=== PATIENT | female | born 1980 | race Caucasian/White ===

== ENCOUNTER 2019-02-22 07:58 | Emergency (ER) | payer BC ==
[~2019-02-22] VITALS: Ht 157.5 cm; Wt 83.9 kg
[~2019-02-22 07:58] MED LIST: ALBUTEROL INHAL17 GM INH; AUGMENTIN 875875 MG PO; CIPRO500 MG PO; CIPROFLOXACIN500 M1 PO; FLAGYL500 MG PO; HYDROCODONE-AP1 EAC6 PO; IBUPROFEN 800800 M1 PO; MOBIC7.5 MG PO; NOHOMEMEDICATIONS; NORCO 5-325 TA1 EACH PO; NORFLEX100 MG PO; PREDNISONE 20 M20 MG PO; PYRIDIUM200 MG PO; TIROSINT50 MCG PO; ZANTAC 150MG T150 M1 PO; ZOFRAN 4 MG ORAL4 M1 DIS; ZPAK PO
[2019-02-22] MEDS ORDERED: HYDROCODONE-AP1 EAC6 PO (08:21)
[2019-02-22] MEDS ORDERED: FLEXERIL PO (08:21)
[2019-02-22] MEDS ORDERED: PREDNISONE50 MG PO (08:21)
[2019-02-22 08:39] VITALS: BP 145/89
== END 2019-02-22 08:41 | disposition home or self-care (01) ==
LOC: M.ERS 07:58
DX: M54.12 Radiculopathy, cervical region (principal); F17.200 Nicotine dependence, unspecified, uncomplicated; E03.9 Hypothyroidism, unspecified; K50.90 Crohn's disease, unspecified, without complications; Z90.49 Acquired absence of other specified parts of digestive tract; Z90.89 Acquired absence of other organs

== ENCOUNTER 2020-06-10 15:46 | Emergency (ER) | payer BC ==
[~2020-06-10] VITALS: Ht 160 cm; Wt 77.1 kg
[~2020-06-10 15:46] MED LIST changes: +FLEXERIL PO; +PREDNISONE50 MG PO
[2020-06-10 16:08] LABS: ABSOLUTE EOSINOPHILS 0.4 thou/uL (0.0-0.7); ABSOLUTE LYMPHOCYTES 2.3 thou/uL (0.8-5.3); ABSOLUTE MONOCYTES 0.7 thou/uL (0.0-1.2); ABSOLUTE NEUTROPHILS 6.6 thou/uL (1.6-8.1); BASOPHILS 0.5 %; EOSINOPHILS 3.9 %; HEMOGLOBIN 14.9 gm/dL (12.0-15.0); LYMPHOCYTES 22.5 %; MCH 34.1 pg (26.0-34.0); MCHC 34.6 g/dL (28.0-37.0); MCV 98.5 fL (80.0-100.0); MPV 9.1 fl. (7.2-11.1); NUCLEATED RBCS 0 /100WBC; PLATELET COUNT* 301 thou/uL (150-400); POLYS 66.1 %; RBC 4.37 mil/uL (4.20-5.00); RDW-CV 13.4 % (10.5-14.5)
[2020-06-10 16:17] LABS: CALCIUM 8.6 mg/dL (8.5-10.1); CREATININE 0.8 mg/dL (0.6-1.3); POTASSIUM 4.6 mmol/L (3.5-5.1)
[2020-06-10 16:18] LABS: URINE BILIRUBIN NEGATIVE (Negative); URINE BLOOD NEGATIVE (Negative); URINE CLARITY CLEAR; URINE COLOR YELLOW; URINE GLUCOSE-RANDOM NEGATIVE (Negative); URINE KETONES NEGATIVE (Negative); URINE LEUKOCYTES-REFLEX NEGATIVE (Negative); URINE NITRITE-REFLEX NEGATIVE (Negative); URINE PROTEIN NEGATIVE (Negative); URINE SPECIFIC GRAVITY 1.025 (1.005-1.030); URINE UROBILINOGEN 0.2 E.U./dl (0.2-1.0)
[2020-06-10 16:29] LABS: ALBUMIN 3.8 g/dL (3.4-5.0); TOTAL BILIRUBIN 0.4 mg/dL (<0.1-1.0); TOTAL PROTEIN 7.6 g/dL (6.4-8.2)
--- NOTE | 2020-06-10 17:04 | EKG ---
[place] [address] ELECTROCARDIOGRAM REPORT Name: RENNY ZAMBRANO Room: [facility].#: [id number] Admission: Attend Phys: Discharge: Date of : 84 Date of Service: 06/10/201613 Report #: [id number] THIS REPORT FOR: //name// [facility] ED Test Date: 2020-06-10 Test Time: 16:14:11 Pat Name: RENNY ZAMBRANO Department: Room: Gender: F Fishing Worker: CCD : 1980 Requested By: Mercedes Chang Order Number: [id number] MD: Carlton Cook Measurements Intervals [place] Rate: 77 P: 53 KS: 164 QRS: 62 QRSD: 85 T: 38 QT: 395 QTc: 448 Interpretive Statements Sinus rhythm Compared to ECG 09/10/2011 14:31:07 T-wave abnormality no longer present Electronically Signed On 06-10-2020 17:04:15 CDT by Carlton Cook [email or web address] <ELECTRONICALLY SIGNED> By: Carlton Cook MD, [facility] 06/10/20 1704 13 13 Carlton Cook MD, FACC /EPI
[2020-06-10] MEDS ORDERED: NORCO 5-325 TA1 EAC2 PO (18:19)
[2020-06-10] MEDS ORDERED: CARAFATE1 GM/10 ML PO (18:19)
[2020-06-10] MEDS ORDERED: PROTONIX40 M1 PO (18:19)
[2020-06-10 18:35] VITALS: BP 122/88
== END 2020-06-10 18:36 | disposition home or self-care (01) ==
LOC: M.ERS 15:46
PROVIDERS: Nurse Practitioner Family
DX: R10.13 Epigastric pain (principal); R94.5 Abnormal results of liver function studies; K50.90 Crohn's disease, unspecified, without complications; Z90.89 Acquired absence of other organs; Z98.51 Tubal ligation status; Z90.49 Acquired absence of other specified parts of digestive tract

== ENCOUNTER → 2020-12-20 | Outpatient (CLI) | payer BC ==
[~2020-12-20] MED LIST changes: +CARAFATE1 GM/10 ML PO; +NORCO 5-325 TA1 EAC2 PO; +PROTONIX40 M1 PO
== END ==
LOC: M.ULTRA 09:30
PROVIDERS: ATTEND Family Medicine
DX: R74.8 Abnormal levels of other serum enzymes (principal)

== ENCOUNTER 2021-04-16 05:18 | Emergency (ER) | payer BC ==
[~2021-04-16] VITALS: Ht 162.6 cm; Wt 83.9 kg
[2021-04-16] MEDS ORDERED: LEVO-T50 MCG PO (05:26)
[2021-04-16] MEDS ORDERED: PROAIR HFA8.5 GM INH (06:00)
[2021-04-16] MEDS ORDERED: PREDNISONE 20 M20 M1 PO (06:00)
[2021-04-16] MEDS ORDERED: AMOXICILLIN500 M1 PO (06:00)
[2021-04-16] MEDS ORDERED: ACETAMINOPHEN-1 EAC2 PO (06:00)
[2021-04-16 06:13] VITALS: BP 136/73
== END 2021-04-16 06:13 | disposition home or self-care (01) ==
LOC: M.ERS 05:18
DX: H66.93 Otitis media, unspecified, bilateral (principal); E03.9 Hypothyroidism, unspecified; Z90.89 Acquired absence of other organs; Z90.49 Acquired absence of other specified parts of digestive tract

== ENCOUNTER 2021-04-21 01:01 | Emergency (ER) | payer BC ==
[~2021-04-21] VITALS: Ht 162.6 cm; Wt 81.7 kg
[~2021-04-21 01:01] MED LIST changes: +ACETAMINOPHEN-1 EAC2 PO; +AMOXICILLIN500 M1 PO; +LEVO-T50 MCG PO; +PREDNISONE 20 M20 M1 PO; +PROAIR HFA8.5 GM INH
[2021-04-21] MEDS ORDERED: DIAZEPAM 2MG TAB2 MG PO (01:59)
[2021-04-21 02:35] VITALS: BP 120/70
== END 2021-04-21 02:35 | disposition home or self-care (01) ==
LOC: M.ERS 01:01
DX: H81.12 Benign paroxysmal vertigo, left ear (principal); F41.9 Anxiety disorder, unspecified; H66.92 Otitis media, unspecified, left ear; E03.9 Hypothyroidism, unspecified; F17.210 Nicotine dependence, cigarettes, uncomplicated; Z90.49 Acquired absence of other specified parts of digestive tract; Z98.51 Tubal ligation status; Z90.89 Acquired absence of other organs